=== PATIENT | female | born 2000 | race Caucasian/White ===

== ENCOUNTER 2022-02-10 20:12 | Emergency (ER) | payer BC, SELFPAY ==
[2022-02-10 20:17] VITALS: BP 91/64; PULSE 97; RESP 16; TEMP 36.9; O2SAT 97; BMI 18.7
[2022-02-10 20:42] VITALS: RESP 16; O2SAT 97
[2022-02-10 20:45] LABS: Appearance Urine Clear (Clear); Bilirubin Urine Negative (Negative); Blood Urine 3+ (Negative); Color Urine Yellow (Yellow); Glucose Urine Negative (Negative); Ketones Urine Negative (Negative); Leukocyte Esterase Urine 1+ (Negative); Nitrite Urine Negative (Negative); Protein Urine Negative (Negative); Urobilinogen Urine 0.2 (0.2-1.0); pH Urine 5.5 (5.0-8.5)
[2022-02-10 20:51] LABS: Bacteria Urine Few; RBC Urine 25-50 (0-2); Squamous Epithelial Cell Urine Few (None-Few)
--- NOTE | 2022-02-10 21:04 | ED_ITS ---
HPI - Female Genitourinary General Chief complaint: Urogenital Problems, Female Stated complaint: Fever and bleeding Time Seen by Provider: 02/10/22 20:24 History of Present Illness HPI Narrative: Pt is a 21 year old woman who comes in with a one day history of urinary frequency, dysuria and fatigue. Mild hematuria also noted. No abd pain. No history of UTI. Otherwise feels well. Related Data Home Medications Medication Instructions Recorded Confirmed fluoxetine 10 mg capsule (Prozac) 10 mg PO DAILY 02/10/22 02/10/22 Allergies Allergy/AdvReac Type Severity Reaction Status Date / Time cat dander Allergy Mild Verified 02/10/22 20:23 Review of Systems Status of ROS: Reports: 10 or more systems reviewed and unremarkable except as noted in History and below PFSH PFSH Social History Smoking Status: Never smoker Do you use any of these nicotine containing products: None How often do you have a drink containing alcohol: 2-4 times a month How many standard drinks containing alcohol do you have on a typical day: 1 or 2 How often do you have six or more drinks on one occasion: Never AUDIT-C Alcohol total score: 2 Non-prescribed substance use: denies use Exam Narrative: Exam Narrative: EXAM GENERAL: Patient appears comfortable and well. EYES: No scleral icterus. LYMPH: No supraclavicular or cervical lymphadenopathy. SKIN: Visible skin seen during exam normal or with benign process only. EXT: No dependent lower extremity pedal edema. HEART: Regular rate and rhythm with no murmurs, rubs, or gallops. LUNGS: Clear to auscultation bilaterally with no crackles or wheezes. ABD: Soft, non tender, non distended. PSYCH: Good eye contact, speech is not pressured. Const: Vital Signs, click to edit/add: Vital Signs - 24 hr 02/10/22 20:17 02/10/22 20:42 Temperature 98.5 F Pulse Rate [Right Pulse Oximeter] 97 Respiratory Rate 16 Respiratory Rate [ Lower Abdomen] 16 Blood Pressure [Ri ght Upper Arm] 91/64 Pulse Oximetry 97 Oxygen Delivery Me thod Room Air Course Vital Signs Vital signs: Initial Vital Signs Temperature 98.5 F 02/10/22 20:17 Temperature Source Temporal Artery Scan 02/10/22 20:17 Pulse Rate 97 02/10/22 20:17 Respiratory Rate 16 02/10/22 20:17 Blood Pressure 91/64 02/10/22 20:17 Blood Pressure Mean 73 02/10/22 20:17 Blood Pressure Position Sitting 02/10/22 20:17 Pulse Oximetry 97 02/10/22 20:17 Oxygen Delivery Method 02/10/22 20:17 Vital Signs Temperature 98.5 F 02/10/22 20:17 Pulse Rate 97 02/10/22 20:17 Respiratory Rate 16 02/10/22 20:17 Blood Pressure 91/64 02/10/22 20:17 Pulse Oximetry 97 02/10/22 20:17 Oxygen Delivery Method 02/10/22 20:17 Temperature 98.5 F 02/10/22 20:17 Pulse Rate 97 02/10/22 20:17 Respiratory Rate 16 02/10/22 20:42 Blood Pressure 91/64 02/10/22 20:17 Pulse Oximetry 97 02/10/22 20:17 Oxygen Delivery Method 02/10/22 20:17 MDM - Female Genitourinary MDM Narrative Medical decision making narrative: Urine shows evidence of UTI. Lab Data Labs: Lab Results 02/10/22 Range/Units 20:33 Urine Color Yellow (Yellow) Urine Appearance Clear (Clear) Urine pH 5.5 (5.0-8.5) Ur Specific [place] 1.010 (1.000-1.030) Urine Protein Negative (Negative) Urine Glucose (UA) Negative (Negative) Urine Ketones Negative (Negative) Urine Blood 3+ A (Negative) Urine Nitrite Negative (Negative) Urine Bilirubin Negative (Negative) Urine Urobilinogen 0.2 (0.2-1.0) Ur Leukocyte Esterase 1+ A (Negative) Urine RBC 25-50 A (0-2) Urine WBC 10-25 A (0-5) Ur Squamous Epith Cells Few (None-Few) Urine Bacteria Few A (None) Discharge Plan Discharge Clinical Impression: Urinary tract infection Patient Disposition: Home, Self-Care Condition: Stable Instructions: Urinary Tract Infection in Women (ED) Activity Level: No Restrictions Discharge Diet: Regular Prescriptions: No Action fluoxetine [Prozac] 10 mg capsule 10 mg PO DAILY Stand Alone Forms: MyHealth Info Instructions
== END 2022-02-10 21:22 | disposition home or self-care (01) ==
LOC: ED 21:15
PROVIDERS: Emergency Provider Internal Medicine
DX: N39.0 Urinary tract infection, site not specified (principal)
CPT/HCPCS: 81003; 81015; 87086; 87186; 99283; 99284